=== PATIENT | female | born 1980 | race Two or more races ===

== ENCOUNTER 2019-08-09 10:18 | Emergency (ER) | payer MEDICAID ==
[2019-08-09] MEDS ORDERED: Ketorolac 30 MG/ML SDV IM ONE (10:33)
[2019-08-09] MEDS ORDERED: Lidocaine 2% Viscous Solution 15 ML Cup PO ONE (10:38)
[2019-08-09] MEDS ORDERED: Benzocaine 20% Topical Spray UD MUCMEM ONE (10:38)
--- NOTE | 2019-08-09 10:38 | EDM.PDOC ---
ED HPI GENERAL MEDICAL PROBLEM - General Chief Complaint: General Stated Complaint: JAW AND NERVE PAIN Time Seen by Provider: 08/09/19 10:28 - History of Present Illness INITIAL COMMENTS - FREE TEXT/NARRATIVE: History of present illness: 39-year-old female presenting with left sided dental and jaw pain ongoing for 2 days. Prior poor dentition and does not have a dentist. She does think she may have injured or fractured that tooth in the past. No pain in the throat. No fevers. She has been trying salt gargles and some Listerine but the pain has continued. Denies any past medical or surgical history. Review of systems: As per history of present illness and below otherwise all systems reviewed and negative. Past medical history: As per history of present illness and as reviewed below otherwise noncontributory. Surgical history: As per history of present illness and as reviewed below otherwise noncontributory. Social history: No reported history of drug or alcohol abuse. Smoker: Half pack per day Family history: As per history of present illness and as reviewed below otherwise noncontributory. Physical exam: HEENT: Atraumatic, normocephalic, mucous membranes moist, throat clear, widespread dental decay. Area of tenderness and mild gum erythema surrounding lower left teeth. No dental abscess. No mandibular swelling or erythema of the skin over the face. Neck: supple, nontender, trachea midline. No cervical adenopathy. Lungs: No respiratory distress. Heart: RRR Abdomen: Soft, nondistended, nontender. Pelvis: Stable nontender. Extremities: Atraumatic. Neurovascularly unremarkable. Neuro: Awake, alert, oriented. Neuro Exam nonfocal. Skin: No rash. Diagnostics: [] Therapeutics: [] MDM: Impression: [] Plan: Pain control with IM Toradol and dental ball. Prescribed Pen-V K. Definitive disposition and diagnosis as appropriate pending reevaluation and review of above. Left Dental Pain Score (Numeric/FACES): 10 - Related Data Allergies Allergy/AdvReac Type Severity Reaction Status Date / Time No Known Allergies Allergy Verified 08/09/19 10:29 Home Meds: Home Meds Ibuprofen 600 mg PO Q8HR PRN #30 tablet 08/09/19 [Rx] Penicillin V Potassium [Veetids] 250 mg PO Q6HR #28 tablet 08/09/19 [Rx] ED ROS GENERAL - Review of Systems Review Of Systems: See Below (See dictation) ED EXAM, GENERAL - Physical Exam Exam: See Below (See dictation) Course - Vital Signs Last Recorded V/S: Last Vital Signs Temp 96.3 F L 08/09/19 10:29 Pulse 96 08/09/19 10:29 Resp 18 08/09/19 10:29 BP 158/112 H 08/09/19 10:29 Pulse Ox 98 08/09/19 10:29 - Orders/Labs/Meds Meds: Medications Discontinued Medications Generic Name Dose Route Start Last Admin Trade Name Freq PRN Reason Stop Dose Admin Benzocaine 2 each 08/09/19 10:38 08/09/19 10:46 Hurricaine One 20% MUCMEM 08/09/19 10:39 2 each ONETIME ONE Administration Ketorolac Tromethamine 30 mg 08/09/19 10:33 08/09/19 10:45 Toradol IM 08/09/19 10:34 30 mg ONETIME ONE Administration Lidocaine HCl 15 ml 08/09/19 10:38 08/09/19 10:46 Xylocaine 2% Viscous PO 08/09/19 10:39 15 ml ONETIME ONE Administration - Re-Assessments/Exams Free Text/Narrative Re-Assessment/Exam: 08/09/19 11:33 She does feeling better. Her pain is improved, though not completely resolved. I did discuss with the patient need for dental follow-up as soon as possible for further evaluation and treatment of her dental decay, possible extraction versus filling. She did voice understanding and agree with the plan. Prescription has been electronically prescribed. Discussed plan to wash teeth 4 times per day with peroxide and water 50-50 mix. She agrees to do so. Also discussed need for the antibiotics until completed. Departure - Departure Time of Disposition: 11:34 Disposition: Home, Self-Care 01 Clinical Impression: Dentalgia, Dental decay - Discharge Information Prescriptions: Penicillin V Potassium [Veetids] 250 mg PO Q6HR #28 tablet Ibuprofen 600 mg PO Q8HR PRN #30 tablet PRN Reason: Pain Instructions: Acute Pain, Adult, Preventive Dental Care, Adult Referrals: PCP,None [Primary Care Provider] - Forms: ED Department Discharge Additional Instructions: The following information is given to patients seen in the emergency department who are being discharged to home. This information is to outline your options for follow-up care. We provide all patients seen in our emergency department with a follow-up referral. The need for follow-up, as well as the timing and circumstances, are variable depending upon the specifics of your emergency department visit. If you don't have a primary care physician on staff, we will provide you with a referral. We always advise you to contact your personal physician following an emergency department visit to inform them of the circumstance of the visit and for follow-up with them and/or the need for any referrals to a consulting specialist. The emergency department will also refer you to a specialist when appropriate. This referral assures that you have the opportunity for follow-up care with a specialist. All of these measure are taken in an effort to provide you with optimal care, which includes your follow-up. Under all circumstances we always encourage you to contact your private physician who remains a resource for coordinating your care. When calling for follow-up care, please make the office aware that this follow-up is from your recent emergency room visit. If for any reason you are refused follow-up, please contact the [facility] Emergency Department at and asked to speak to the emergency department charge nurse. Please follow-up with 1 of the dental clinics as soon as possible. Sepsis Event Note (ED) - Evaluation Sepsis Screening Result: Possible Sepsis Risk - Focused Exam Vital Signs: Vital Signs Temp Pulse Resp BP Pulse Ox 08/09/19 10:29 96.3 F L 96 18 158/112 H 98
== END 2019-08-09 11:51 | disposition home or self-care (01) ==
LOC: MW.ED 10:18
DX: K02.9 Dental caries, unspecified (principal)
CPT/HCPCS: 96372; 99283; A9270; J1885

== ENCOUNTER 2019-08-17 22:16 | Emergency (ER) | payer MEDICAID ==
[2019-08-17] MEDS ORDERED: Benzocaine 20% Topical Spray UD MUCMEM ONE (22:17)
[2019-08-17] MEDS ORDERED: Lidocaine 2% Viscous Solution 15 ML Cup PO ONE (22:17)
--- NOTE | 2019-08-17 22:18 | EDM.PDOC ---
ED HPI GENERAL MEDICAL PROBLEM - General Stated Complaint: SICK Time Seen by Provider: 08/17/19 22:17 Source of Information: Reports: Patient History Limitations: Reports: No Limitations - History of Present Illness INITIAL COMMENTS - FREE TEXT/NARRATIVE: 39-year-old female presents with worsening dental pain. She was seen here on 08/08 and was prescribed Pen-Vee K and ibuprofen, she ran out yesterday and her symptoms have gotten worse. She notes worsening pain and swelling to the left lower jaw. Denies fever, chills. ROS: A 10-point review of systems, other than pertinent positives and negatives as stated per HPI, is otherwise negative PHYSICAL EXAM General: AOx4, GCS = 15, mild distress HEENT: dry mucous membrane, poor dentition, induration to tooth #23 and 24 with trace fluctuance. poor dentition Neck: supple, no meningismus, no Kernig or Brudzinski Cardiac: S1S2 RRR Respiratory: CTAB, no crackles or rales, no wheezing Abdomen: Soft, nontender, no rebound or guarding, nondistended, no pulsatile mass. Back: nontender Musculoskeletal: NVI distally, no deformity Neuro: No focal deficits, CN 2 - 12 WNL. dental Pain Score (Numeric/FACES): 10 - Related Data Allergies Allergy/AdvReac Type Severity Reaction Status Date / Time No Known Allergies Allergy Verified 08/09/19 10:29 Home Meds: Home Meds Ibuprofen 600 mg PO Q8HR PRN #30 tablet 08/09/19 [Rx] Penicillin V Potassium [Veetids] 250 mg PO Q6HR #28 tablet 08/09/19 [Rx] Penicillin V Potassium 500 mg PO Q6HR #40 tab 08/18/19 [Rx] Past Medical History - Infectious Disease History Infectious Disease History: Reports: None - Past Surgical History Female Surgical History: Reports: Section Social & Family History - Family History Family Medical History: Noncontributory - Caffeine Use Caffeine Use: Reports: Coffee ED ROS GENERAL - Review of Systems Review Of Systems: Comprehensive ROS is negative, except as noted in HPI. ED EXAM, GENERAL - Physical Exam Exam: See Below (See dictation) ED GENERAL MEDICAL PROCEDURES - Additional/Other Procedure(s) Other (Free Text) Procedure(s): Incision & Drainage: Time performed: 1201. A time-out was completed verifying correct patient, procedure, site, positioning, and special equipment if applicable. Indication: Abscess. Location: Left lower jaw. The area of maximal induration and fluctuance was anesthetized using lollicaine topical and bupivacaine 0.5%, and a total of 10ml was administered. Incision was created with a #11 blade scalpel. Abscess was manually decompressed and probed, with loculations decompressed. This was met with moderate amount 5cc of prurulent d rainage. Patient tolerated well. Time spent: 20 min Course - Vital Signs Last Recorded V/S: Last Vital Signs Temp 97.1 F 08/17/19 22:24 Pulse 106 H 08/17/19 22:24 Resp 18 08/17/19 22:24 BP 156/110 H 08/17/19 22:24 Pulse Ox 100 08/17/19 22:24 - Orders/Labs/Meds Meds: Medications Discontinued Medications Generic Name Dose Route Start Last Admin Trade Name Suma PRN Reason Stop Dose Admin Benzocaine 2 each 08/17/19 22:17 08/17/19 22:29 Hurricaine One 20% MUCMEM 08/17/19 22:18 2 each ONETIME ONE Administration Lidocaine HCl 15 ml 08/17/19 22:17 08/17/19 22:29 Xylocaine 2% Viscous PO 08/17/19 22:18 15 ml ONETIME ONE Administration - Re-Assessments/Exams Free Text/Narrative Re-Assessment/Exam: 08/18/19 00:02 - dental balls given with no relief. Lollicaine place topically prior to bupivacaine injection and I&D. see procedure note. 08/18/19 00:21 -after I&D, she improved clinically and is stable for discharge. I performed a repeat examination and the patient has not demonstrated any new abnormal findings. Patient exhibits normal vital signs and has exhibited a normal gait. I advised the patient to return to the ER for reevaluation if symptoms worsened, and to follow up with dentist within 2-3 days. MEDICAL DECISION MAKING: I reviewed the patients past medical records, lab and radiographic findings. I discussed the case with the patient. My differential diagnosis included: dental abscess, cavities, ANUG. Patient feels much improved after incision and drainage with purulent material. Instructed her to follow- up with dentist. Will prescribe her with Diamond Walker today. I do not suspect Jose's angina, she had no tenderness or induration to the submandibular floor Departure - Departure Time of Disposition: 00:22 Disposition: Home, Self-Care 01 Condition: Good Clinical Impression: Dental abscess - Discharge Information *PRESCRIPTION DRUG MONITORING PROGRAM REVIEWED*: Not Applicable *COPY OF PRESCRIPTION DRUG MONITORING REPORT IN PATIENT LINDA: Not Applicable Prescriptions: Penicillin V Potassium 500 mg PO Q6HR #40 tab Instructions: Dental Abscess, [id number] Referrals: PCP,None [Primary Care Provider] - Forms: ED Department Discharge Additional Instructions: The following information is given to patients seen in the emergency department who are being discharged to home. This information is to outline your options for follow-up care. We provide all patients seen in our emergency department with a follow-up referral. The need for follow-up, as well as the timing and circumstances, are variable depending upon the specifics of your emergency department visit. If you don't have a primary care physician on staff, we will provide you with a referral. We always advise you to contact your personal physician following an emergency department visit to inform them of the circumstance of the visit and for follow-up with them and/or the need for any referrals to a consulting specialist. The emergency department will also refer you to a specialist when appropriate. This referral assures that you have the opportunity for follow-up care with a specialist. All of these measure are taken in an effort to provide you with optimal care, which includes your follow-up. Under all circumstances we always encourage you to contact your private physician who remains a resource for coordinating your care. When calling for follow-up care, please make the office aware that this follow-up is from your recent emergency room visit. If for any reason you are refused follow-up, please contact the [facility] Emergency Department at and asked to speak to the emergency department charge nurse. If you do not have a primary care doctor, please follow up with the clinics below within 3-5 days. [facility] - Primary Care [address] [place] [id number] [facility] [address] [place] [id number] Sepsis Event Note (ED) - Focused Exam Vital Signs: Vital Signs Temp Pulse Resp BP Pulse Ox 08/17/19 22:24 97.1 F 106 H 18 156/110 H 100
== END 2019-08-18 03:11 | disposition home or self-care (01) ==
LOC: MW.ED 22:16
DX: K04.7 Periapical abscess without sinus (principal); K00.7 Teething syndrome
CPT/HCPCS: 41800; 99282; A9270

== ENCOUNTER 2022-05-14 23:03 | Emergency (ER) | payer MEDICAID, OTHER | END 2022-05-14 23:36 | LOC: MW.ED 23:03 | DX: I10 Essential (primary) hypertension (principal) | CPT/HCPCS: 99283 ==

== ENCOUNTER 2023-10-02 07:56 | Emergency (ER) | payer SELFPAY ==
[2023-10-02] MEDS: amLODIPine 5 MG Tab PO ONE (08:53)
[2023-10-02 11:38] LABS: BASOPHILS ABSOLUTE AUTO 0.04 K/uL (0.00-0.20); BASOPHILS PERCENT AUTO 0.7 % (0.0-1.0); EOSINOPHILS ABSOLUTE AUTO 0.21 K/uL (0.00-0.45); EOSINOPHILS PERCENT AUTO 3.5 % (0.0-6.0); HEMATOCRIT 39.3 % (37.0-47.0); HEMOGLOBIN 12.6 g/dL (12.0-16.0); LYMPHOCYTES ABSOLUTE AUTO 1.98 K/uL (1.00-4.80); LYMPHOCYTES PERCENT AUTO 32.8 % (24.0-44.0); MEAN CORPUSCULAR HEMOGLOBIN 25.4 pg (28.0-32.0); MEAN CORPUSCULAR HGB CONC 32.1 g/dL (32.0-36.0); MEAN CORPUSCULAR VOLUME 79.1 fL (83.0-99.0); MEAN PLATELET VOLUME 9.7 fL (9.4-12.3); MONOCYTES ABSOLUTE AUTO 0.32 K/uL (0.00-0.80); MONOCYTES PERCENT AUTO 5.3 % (0.0-8.0); NEUTROPHILS ABSOLUTE AUTO 3.49 K/uL (1.80-7.70); NEUTROPHILS PERCENT AUTO 57.7 % (41.0-71.0); PLATELET COUNT,PLT 264 K/uL (150-400); RED BLOOD CELL COUNT 4.97 M/uL (4.10-5.30); WHITE BLOOD CELL COUNT,WBC 6.04 K/uL (3.9-11.3)
[2023-10-02 12:14] LABS: ALANINE AMINOTRANSFERASE,ALT 34 IU/L (14-63); ALKALINE PHOSPHATASE 76 U/L (46-116); ASPARTATE AMNIOTRANSFERASE,AST 31 IU/L (15-37); BILIRUBIN TOTAL 0.4 mg/dL (0.2-1.0); BLOOD UREA NITROGEN,BUN 8 mg/dL (7.0-18.0); CALCIUM 9.2 mg/dL (8.5-10.1); CARBON DIOXIDE,CO2 27.3 mmol/L (21.0-32.0); CHLORIDE,CL 104 mmol/L (98-107); CREATININE 0.8 mg/dL (0.6-1.0); EST CRCL DRUG DOSING (CG) 79.11 mL/min; GLUCOSE RANDOM 100 mg/dL (74-106); PROTEIN TOTAL,TP 8.1 g/dL (6.4-8.2); SODIUM,NA 140 mmol/L (136-145)
[2023-10-02 12:19] LABS: ESTIMATED GFR 94 mL/min (>60)
== END 2023-10-02 14:47 | disposition home or self-care (01) ==
LOC: MW.ED 07:56
DX: I10 Essential (primary) hypertension (principal); F17.210 Nicotine dependence, cigarettes, uncomplicated
CPT/HCPCS: 36415; 71045; 80053; 84484; 85025; 93005; 99284; A9270; 99283

== ENCOUNTER 2024-09-18 13:35 | Emergency (ER) | payer SELFPAY | END 2024-09-18 14:32 | LOC: MW.ED 13:35 | DX: Z02.89 Encounter for other administrative examinations (principal); I10 Essential (primary) hypertension; Z91.198 Patient's noncompliance with other medical treatment and regimen for other reason | CPT/HCPCS: 99282; 99283 ==

== ENCOUNTER 2024-09-18 17:33 | Emergency (ER) | payer OTHER ==
[2024-09-18 19:02] LABS: BASOPHILS ABSOLUTE AUTO 0.04 K/uL (0.00-0.20); BASOPHILS PERCENT AUTO 0.5 % (0.0-1.0); EOSINOPHILS ABSOLUTE AUTO 0.10 K/uL (0.00-0.45); EOSINOPHILS PERCENT AUTO 1.3 % (0.0-6.0); IMMATURE GRAN ABSOLUTE AUTO 0.02 K/uL (0.00-0.05); IMMATURE GRAN PERCENT AUTO 0.3 % (0.0-0.4); LYMPHOCYTES ABSOLUTE AUTO 2.02 K/uL (1.00-4.80); LYMPHOCYTES PERCENT AUTO 26.4 % (24.0-44.0); MEAN PLATELET VOLUME 10.0 fL (9.4-12.3); MONOCYTES ABSOLUTE AUTO 0.57 K/uL (0.00-0.80); MONOCYTES PERCENT AUTO 7.5 % (0.0-8.0); NEUTROPHILS ABSOLUTE AUTO 4.90 K/uL (1.80-7.70); NEUTROPHILS PERCENT AUTO 64.0 % (41.0-71.0); NRBC ABSOLUTE 0.00 K/uL (0.00-0.02); NRBC PERCENT 0.0 /100WBC (0.0-0.2); PLATELET COUNT,PLT 261 K/uL (150-400); RED BLOOD CELL COUNT 5.05 M/uL (4.10-5.30); WHITE BLOOD CELL COUNT,WBC 7.65 K/uL (3.9-11.3)
[2024-09-18 20:05] LABS: A/G RATIO 0.9 (0.9-1.6); ALANINE AMINOTRANSFERASE,ALT 42 IU/L (14-63); ASPARTATE AMNIOTRANSFERASE,AST 38 IU/L (15-37); BILIRUBIN TOTAL 0.4 mg/dL (0.2-1.0); BLOOD UREA NITROGEN,BUN 14 mg/dL (7.0-18.0); CARBON DIOXIDE,CO2 26.2 mmol/L (21.0-32.0); CHLORIDE,CL 103 mmol/L (98-107); CREATININE 0.8 mg/dL (0.6-1.0); EST CRCL DRUG DOSING (CG) 75.01 mL/min; ESTIMATED GFR 94 mL/min (>60); GLUCOSE RANDOM 97 mg/dL (74-106); POTASSIUM,K 4.2 mmol/L (3.5-5.1); PRO B-TYPE NATRIUR PEPT,BNPPRO 36 pg/mL (0-125); PROTEIN TOTAL,TP 8.0 g/dL (6.4-8.2); SODIUM,NA 138 mmol/L (136-145)
== END 2024-09-18 20:24 ==
LOC: MW.ED 17:33
DX: I10 Essential (primary) hypertension (principal); F41.0 Panic disorder [episodic paroxysmal anxiety]; Z79.899 Other long term (current) drug therapy; R45.83 Excessive crying of child, adolescent or adult
CPT/HCPCS: 36415; 71045; 80053; 83735; 83880; 84484; 85025; 93005; 99285; A9270; 93010; 99284

== ENCOUNTER 2024-10-17 15:03 | Emergency (ER) | payer SELFPAY | END 2024-10-17 15:43 | disposition home or self-care (01) | LOC: MW.ED 15:03 | DX: Z76.0 Encounter for issue of repeat prescription (principal); I10 Essential (primary) hypertension; Z79.899 Other long term (current) drug therapy | CPT/HCPCS: 99281; 99282 ==